=== PATIENT | female | born 1975 | race African-American/Black ===

== ENCOUNTER 2017-03-22 21:19 | Emergency (ER) | payer MEDICAID ==
[2017-03-22] MEDS ORDERED: ACETAMINOPHEN 325 MG TABLET PO ONE (21:24)
--- NOTE | 2017-03-22 21:44 | ER Document Report ---
HPI - HPI Patient complains to provider of: fall Pain Level: 5 - Fall Context: patient is a 41-year-old female presents emergency department complaining of a fall. Patient states that she slipped and lost her balance on ice landing on her right hip. She has been able to ambulate and bear weight since this she admits to soreness superficially but denies any pain with hip motion.She also admits to right elbow discomfort that is sore but no pain with range of motion. Denies any head injury, loss of consciousness - MUSCULOSKELETAL Musculoskeletal: REPORTS: Extremity pain - right elbow and hip Past Medical History - Social History Smoking Status: Unknown if Ever Smoked Family History: Reviewed & Not Pertinent Patient has suicidal ideation: No Patient has homicidal ideation: No Renal/ Medical History: Denies: Hx Peritoneal Dialysis Vertical Provider Document - CONSTITUTIONAL Agree With Documented VS: Yes Notes: PHYSICAL EXAMINATION: GENERAL: Well-appearing, well-nourished and in no acute distress. HEAD: Atraumatic, normocephalic. NECK: Normal range of motion, supple without lymphadenopathy. Trachea midline LUNGS: Breath sounds clear to auscultation bilaterally and equal. No wheezes rales or rhonchi. HEART: Regular rate and rhythm without murmurs. Pulses intact all throughout. Musculoskeletal: Normal range of motion, no pitting or edema. No cyanosis. Hip tender along the lateral aspect of the joint, stable. knee nontender full range of motion NEUROLOGICAL: Cranial nerves grossly intact. Normal speech, normal gait. Normal sensory, motor, and reflex exams. PSYCH: Normal mood, normal affect. SKIN: Warm, No active bleeding - INFECTION CONTROL TRAVEL OUTSIDE OF THE [place] IN LAST 30 DAYS: No - RESPIRATORY O2 Sat by Pulse Oximetry: 99 Course - Re-evaluation Re-evalutation: 03/22/17 22:26 Patient is a 41-year-old female is hemodynamically stable, no acute distress. No evidence of a dislocation, or fracture on exam and imaging. Vitals wnl. At this time, I do not see an indication for labs or further imaging. Will discharge with conservative measures, return precautions, and follow-up recommendations. - Vital Signs Vital signs: Temp Pulse Resp BP Pulse Ox 99.0 F 108 H 20 123/88 H 99 03/22/17 21:26 03/22/17 21:26 03/22/17 21:26 03/22/17 21:26 03/22/17 21:26 - Diagnostic Test Radiology reviewed: Image reviewed, Reports reviewed Discharge - Discharge Clinical Impression: Fall Qualifiers: Encounter type: initial encounter Qualified Code(s): W19.XXXA - Unspecified fall, initial encounter Condition: Good Disposition: HOME, SELF-CARE Instructions: Contusion ([facility]), Use of Evfr-[id number]-[id number] Ibuprofen ([facility]), Ice Packs ([facility]) Prescriptions: Ibuprofen [Motrin 800 mg Tablet] 800 mg PO Q8H PRN #30 tab PRN Reason:
--- NOTE | 2017-03-22 22:23 | RADIOLOGY REPORT (SQ) ---
EXAM DESCRIPTION: HIP RIGHT AP/LATERAL COMPLETED DATE/TIME: 03/22/2017 10:01 pm REASON FOR STUDY: fall COMPARISON: None. NUMBER OF VIEWS: Two views. TECHNIQUE: AP pelvis and additional frog-leg view of the right hip. LIMITATIONS: None. FINDINGS: MINERALIZATION: Normal. RIGHT HIP: No fracture or dislocation. No worrisome bone lesions. LEFT HIP: No fracture or dislocation. No worrisome bone lesions. PUBIS AND ISCHIUM: No fracture. PELVIS: No fracture. SACRUM: No fracture or dislocation. No worrisome bone lesions. LOWER LUMBAR SPINE: No fracture or dislocation. No worrisome bone lesions. No significant disc disea se. SOFT TISSUES: No findings. OTHER: No other significant finding. IMPRESSION: NEGATIVE STUDY OF THE RIGHT HIP. NO RADIOGRAPHIC EVIDENCE OF ACUTE INJURY. TECHNICAL DOCUMENTATION: JOB ID: [id number] [employer]- All Rights Reserved
[2017-03-22] MEDS ORDERED: CODEINE SULF 15 MG TABLET PO ONE (22:26)
[2017-03-22 22:45] VITALS: BP 120/80
== END 2017-03-22 22:35 | disposition home or self-care (01) ==
LOC: ER 21:19
DX: M25.521 Pain in right elbow (principal); M25.551 Pain in right hip; W01.0XXA Fall on same level from slipping, tripping and stumbling without subsequent striking against object, initial encounter
CPT/HCPCS: 99283; 73502; J3490 ×2